=== PATIENT | female | born 1975 | race Caucasian/White ===

== ENCOUNTER 2023-04-10 12:08 | Observation (INO) | payer BC ==
--- NOTE | 2023-04-10 13:06 | ED ---
General Adult HPI - General Source: patient, RN notes reviewed Mode of arrival: ambulatory Limitations: no limitations <Dom Mckenna - Last Filed: 04/10/23 13:05> <Felicia Dumas - Last Filed: 04/11/23 00:13> - General Stated complaint: abn EKG - sent by pcp Time Seen by Provider: 04/10/23 13:05 - History of Present Illness Initial comments: 48-year-old female presents emergency Department from PCPs office for evaluation of numbness and tingling in left shoulder, arm. She states she doesn't feel well. She had abnormal sensation in her chest. Patient was sent over here after EKG. Patient states his symptoms duplicated improving no prior cardiac disease. (Dom Mckenna) Patient is a 48 old female presenting with chief complaint of chest pressure. Patient states that she was seen at her PCPs office earlier today for episodes of chest pressure which radiates down the left arm area accompanied by some numbness and tingling in the arm and shoulder. States that she doesn't feel well. Episodes come on at random, and no alleviating or aggravating factors. She was sent in by her PCP for abnormal EKG. Admits to some nausea, no vomiting or abdominal pain. No shortness of breath. She does admit to an occasional fluttering in the chest. No dizziness. No headache or vision or hearing changes. No active pain at this time (Felicia Dumas) - Related Data Home Medications Medication Instructions Recorded Confirmed No Known Home Medications 04/10/23 04/10/23 Allergies Allergy/AdvReac Type Severity Reaction Status Date / Time No Known Allergies Allergy Verified 04/10/23 18:35 Review of Systems ROS Other: All systems not noted in ROS Statement are negative. <Dom Mckenna - Last Filed: 04/10/23 13:05> ROS Other: All systems not noted in ROS Statement are negative. <Felicia Dumas - Last Filed: 04/11/23 00:13> ROS Statement: Those systems with pertinent positive or pertinent negative responses have been documented in the HPI. General Exam <Dom Mckenna - Last Filed: 04/10/23 13:05> Limitations: no limitations General appearance: alert, in no apparent distress Head exam: Present: atraumatic, normocephalic, normal inspection Eye exam: Present: normal appearance, EOMI. Absent: scleral icterus, periorbital swelling Neck exam: Present: normal inspection, full ROM Respiratory exam: Present: normal lung sounds bilaterally. Absent: respiratory distress, wheezes, rales, rhonchi, stridor Cardiovascular Exam: Present: regular rate, normal rhythm, normal heart sounds. Absent: systolic murmur, diastolic murmur, rubs, gallop, clicks Neurological exam: Present: alert, oriented X3, CN II-XII intact Psychiatric exam: Present: normal affect, normal mood Skin exam: Present: warm, dry, intact, normal color. Absent: rash <Felicia Dumas - Last Filed: 04/11/23 00:13> - General Exam Comments Initial Comments: Visual Physical Exam Vital signs reviewed General: Well-appearing, nontoxic, no acute distress. Head: Normocephalic, atraumatic Eyes: PERRLA, EOMI ENT: Airway patent Chest: Nonlabored breathing Skin: No visual rash, normal skin tone Neuro: Alert and oriented 3 Musculoskeletal: No gross abnormalities (Dom Mckenna) Course Vital Signs 04/10/23 04/10/23 04/10/23 13:03 16:59 18:33 Temperature 98.1 F Pulse Rate 73 87 71 Pulse Rate [ Bilateral Radial] Respiratory 20 18 20 Rate Blood Pressure 133/82 126/86 130/82 O2 Sat by Pulse 98 98 97 Oximetry 04/10/23 04/10/23 19:42 21:01 Temperature 98.2 F Pulse Rate 72 Pulse Rate [ 72 Bilateral Radial] Respiratory 16 Rate Blood Pressure 129/81 O2 Sat by Pulse 99 Oximetry EKG Findings - EKG Comments: EKG Findings:: Sinus rhythm with sinus arrhythmia. Ventricular rate 82. RI interval 151. QRS 96. QT 375. QTC 413. Normal axis. No ischemic changes. <Felicia Dumas - Last Filed: 04/11/23 00:13> Medical Decision Making - Lab Data Result diagrams: 04/10/23 13:31 04/10/23 13:31 <Felicia Dumas - Last Filed: 04/11/23 00:13> - Medical Decision Making Was pt. sent in by a medical professional or institution (, PA, PATENT PROSECUTION PARALEGAL, urgent care, hospital, or alf...) When possible be specific @ -Sent by PCP Did you speak to anyone other than the patient for history (EMS, parent, family, police, friend...)? What history was obtained from this source @ -No Did you review nursing and triage notes (agree or disagree)? Why? @ -I reviewed and agree with nursing and triage notes Were old charts reviewed (outside hosp., previous admission, EMS record, old EKG, old radiological studies, urgent care reports/EKG's, alf records)? Report findings @ -No old charts were reviewed Differential Diagnosis (chest pain, altered mental status, abdominal pain women, abdominal pain men, vaginal bleeding, weakness, fever, dyspnea, syncope, headache, dizziness, GI bleed, back pain, seizure, CVA, palpatations, mental health, musculoskeletal)? @ -MDM Differential Chest Pain: Stable Angina, Unstable Angina, STEMI, NSTEMI Aortic Dissection, Pneumothorax, Musculoskeletal, Esophageal Spasm GERD, Cholecystitis, Pancreatitis, Zoster This is not meant to be an all-inclusive list. EKG interpreted by me (3pts min.). @ -As above X-rays interpreted by me (1pt min.). @ -Chest x-ray shows no acute process CT interpreted by me (1pt min.). @ -None done U/S interpreted by me (1pt. min.). @ -None done What testing was considered but not performed or refused? (CT, X-rays, U/S, labs)? Why? @ -None What meds were considered but not given or refused? Why? @ -None Did you discuss the management of the patient with other professionals (professionals i.e. , PA, PATENT PROSECUTION PARALEGAL, lab, RT, psych nurse, rn social services, talent acquisition consultant, teacher, mail officer, porter sample case)? Give summary @ -Spoke with Dr. Taylor who accepted admission Was smoking cessation discussed for >3mins.? @ -No Was critical care preformed (if so, how long)? @ -No Were there social determinants of health that impacted care today? How? (Homelessness, low income, unemployed, alcoholism, drug addiction, transportation, low edu. Level, literacy, decrease access to med. care, nursing home, rehab)? @ -No Was there de-escalation of care discussed even if they declined (Discuss DNR or withdrawal of care, Hospice)? DNR status @ -No What co-morbidities impacted this encounter? (DM, HTN, Smoking, COPD, CAD, Cancer, CVA, ARF, Chemo, Hep., AIDS, mental health diagnosis, sleep apnea, morbid obesity)? @ -None Was patient admitted / discharged? Hospital course, mention meds given and route, prescriptions, significant lab abnormalities, going to OR and other pertinent info. @ -Patient is a 48-year-old female presenting with chief complaint of chest pain and palpitations. Physical examination is unremarkable. Workup is grossly negative. Given the patient's description of symptoms I believe in observation and evaluation by cardiology would be of benefit. I spoke with Dr. Taylor accepts admission. Patient is agreeable with this plan. I discussed this case with my attending Dr. Clark Undiagnosed new problem with uncertain prognosis? @ -No Drug Therapy requiring intensive monitoring for toxicity (Heparin, Nitro, Insulin, Cardizem)? @ -No Were any procedures done? @ -No Diagnosis/symptom? @ -Chest pain Acute, or Chronic, or Acute on Chronic? @ -Acute Uncomplicated (without systemic symptoms) or Complicated (systemic symptoms)? @ -Complicated Side effects of treatment? @ -No Exacerbation, Progression, or Severe Exacerbation? @ -No Poses a threat to life or bodily function? How? (Chest pain, USA, VT, pneumonia, PE, COPD, DKA, ARF, appy, cholecystitis, CVA, Diverticulitis, Homicidal, Suicidal, threat to staff... and all critical care pts) @ -Yes (Felicia Dumas) - Lab Data Lab Results 04/10/23 04/10/23 04/10/23 Range/Units 13:31 13:31 13:31 WBC 8.4 (3.8-10.6) k/uL RBC 4.86 (3.80-5.40) m/uL Hgb 14.1 (11.4-16.0) gm/dL Hct 42.6 (34.0-46.0) % MCV 87.7 (80.0-100.0) fL MCH 29.0 (25.0-35.0) pg MCHC 33.1 (31.0-37.0) g/dL RDW 12.5 (11.5-15.5) % Plt Count 433 (150-450) k/uL MPV 7.2 Neutrophils % 75 % Lymphocytes % 18 % Monocytes % 4 % Eosinophils % 2 % Basophils % 0 % Neutrophils # 6.3 (1.3-7.7) k/uL Lymphocytes # 1.5 (1.0-4.8) k/uL Monocytes # 0.3 (0-1.0) k/uL Eosinophils # 0.1 (0-0.7) k/uL Basophils # 0.0 (0-0.2) k/uL PT 9.9 (9.0-12.0) sec INR 0.9 (<1.2) APTT 24.2 (22.0-30.0) sec Sodium 139 (137-145) mmol/L Potassium 4.2 (3.5-5.1) mmol/L Chloride 104 (98-107) mmol/L Carbon Dioxide 23 (22-30) mmol/L Anion Gap 12 mmol/L BUN 17 (7-17) mg/dL Creatinine 0.70 (0.52-1.04) mg/dL Est GFR (CKD-EPI)AfAm >90 (>60 ml/min/1.73 sqM) Est GFR (CKD-EPI)NonAf >90 (>60 ml/min/1.73 sqM) Glucose 94 (74-99) mg/dL Calcium 9.4 (8.4-10.2) mg/dL Magnesium 2.3 (1.6-2.3) mg/dL Total Bilirubin 0.5 (0.2-1.3) mg/dL AST 27 (14-36) U/L ALT 18 (4-34) U/L Alkaline Phosphatase 80 (38-126) U/L Troponin I (0.000-0.034) ng/mL Total Protein 8.0 (6.3-8.2) g/dL Albumin 4.5 (3.5-5.0) g/dL 04/10/23 Range/Units 13:31 WBC (3.8-10.6) k/uL RBC (3.80-5.40) m/uL Hgb (11.4-16.0) gm/dL Hct (34.0-46.0) % MCV (80.0-100.0) fL MCH (25.0-35.0) pg MCHC (31.0-37.0) g/dL RDW (11.5-15.5) % Plt Count (150-450) k/uL MPV Neutrophils % % Lymphocytes % % Monocytes % % Eosinophils % % Basophils % % Neutrophils # (1.3-7.7) k/uL Lymphocytes # (1.0-4.8) k/uL Monocytes # (0-1.0) k/uL Eosinophils # (0-0.7) k/uL Basophils # (0-0.2) k/uL PT (9.0-12.0) sec INR (<1.2) APTT (22.0-30.0) sec Sodium (137-145) mmol/L Potassium (3.5-5.1) mmol/L Chloride (98-107) mmol/L Carbon Dioxide (22-30) mmol/L Anion Gap mmol/L BUN (7-17) mg/dL Creatinine (0.52-1.04) mg/dL Est GFR (CKD-EPI)AfAm (>60 ml/min/1.73 sqM) Est GFR (CKD-EPI)NonAf (>60 ml/min/1.73 sqM) Glucose (74-99) mg/dL Calcium (8.4-10.2) mg/dL Magnesium (1.6-2.3) mg/dL Total Bilirubin (0.2-1.3) mg/dL AST (14-36) U/L ALT (4-34) U/L Alkaline Phosphatase (38-126) U/L Troponin I <0.012 (0.000-0.034) ng/mL Total Protein (6.3-8.2) g/dL Albumin (3.5-5.0) g/dL Disposition <Dom Mckenna - Last Filed: 04/10/23 13:05> Time of Disposition: 18:15 <Felicia Dumas - Last Filed: 04/11/23 00:13> Clinical Impression: Chest pain Disposition: ADMITTED IP TO THIS HOSP Condition: Fair
[2023-04-10 13:45] LABS: Basophils % (A) 0 %; Eosinophils # (A) 0.1 k/uL (0-0.7); Eosinophils % (A) 2 %; HCT 42.6 % (34.0-46.0); HGB 14.1 gm/dL (11.4-16.0); Lymphocytes # (A) 1.5 k/uL (1.0-4.8); Lymphocytes % (A) 18 %; MCHC 33.1 g/dL (31.0-37.0); MCV 87.7 fL (80.0-100.0); Mean Platelet Volume 7.2; Monocytes # (A) 0.3 k/uL (0-1.0); Monocytes % (A) 4 %; Neutrophils # (A) 6.3 k/uL (1.3-7.7); Neutrophils % (A) 75 %; Platelet Count 433 k/uL (150-450); RBC 4.86 m/uL (3.80-5.40); RDW 12.5 % (11.5-15.5); WBC 8.4 k/uL (3.8-10.6)
[2023-04-10 14:07] LABS: ALT 18 U/L (4-34); AST 27 U/L (14-36); African American GFR (CKD) >90 (>60 ml/min/1.73 sqM); Albumin 4.5 g/dL (3.5-5.0); Alkaline Phosphatase 80 U/L (38-126); Anion Gap 12 mmol/L; Blood Urea Nitrogen 17 mg/dL (7-17); Calcium 9.4 mg/dL (8.4-10.2); Carbon Dioxide 23 mmol/L (22-30); Chloride 104 mmol/L (98-107); Glucose 94 mg/dL (74-99); INR 0.9 (<1.2); Magnesium 2.3 mg/dL (1.6-2.3); Non-African American GFR(CKD) >90 (>60 ml/min/1.73 sqM); Partial Thromboplastin Time 24.2 sec (22.0-30.0); Potassium 4.2 mmol/L (3.5-5.1); Prothrombin Time 9.9 sec (9.0-12.0); Sodium 139 mmol/L (137-145); Total Bilirubin 0.5 mg/dL (0.2-1.3)
--- NOTE | 2023-04-10 15:05 | XR ---
EXAMINATION TYPE: XR chest 2V DATE OF EXAM: 04/10/2023 2:56 PM COMPARISON: None TECHNIQUE: XR chest 2V Frontal and lateral views of the chest. CLINICAL INDICATION:Female, 48 years old with history of Chest Pain; FINDINGS: Lungs/Pleura: There is no evidence of pleural effusion, focal consolidation, or pneumothorax. Pulmonary vascularity: Unremarkable. Heart/mediastinum: Cardiomediastinal silhouette is unremarkable. Musculoskeletal: No acute osseous pathology. IMPRESSION: No acute cardiopulmonary disease/process.
[2023-04-10] MEDS ORDERED: KETOROLAC 15 MG/ML 1 ML VIAL IVP PRN (18:15)
[2023-04-10] MEDS ORDERED: NALOXONE 0.4 MG/ML 1 ML VIAL IV PRN (18:15)
[2023-04-10] MEDS ORDERED: MORPHINE SULFATE 4 MG/ML SYRINGE IV PRN (18:15)
[2023-04-10] MEDS ORDERED: ACETAMINOPHEN TAB 325 MG TAB PO PRN (18:15)
--- NOTE | 2023-04-10 21:41 | P.HPIM ---
History of Present Illness H&P Date: 04/10/23 Chief Complaint: Heart racing This is a pleasant 48-year-old patient with no past medical history. For 2 months patient been having episodes where she feels heart fluttering associated with dizziness. 8:30 AM this morning patient again noticed significant fluttering of the heart and lasted rather intensely for about 50 minutes. Became dizzy. She developed pain in the shoulder and the left arm became numb. Also slightly confused. No prior diagnosis of arrhythmia. Does not take any nicotine or caffeine products. Of late he has been feeling a bit dizzy tired. Has been about 20 pounds in the last few months. Accompanied by in the ER. The strep from her outside hospital could not be located in the ER. Currently showing sinus rhythm on a telemetry monitoring. Review of systems: GEN.: Tired EYES: None HEENT: None NECK: None RESPIRATORY: None CARDIOVASCULAR: As above GASTROINTESTINAL: None GENITOURINARY: None MUSCULOSKELETAL: None LYMPHATICS: None HEMATOLOGICAL: None PSYCHIATRY: None NEUROLOGICAL: None Social history: . No smoking or alcohol. Works with her at her store Physical examination: VITAL SIGNS: At 8.2, 72, 16, 129/81, 99% room air GENERAL: BMI 30.7, declining a bit of a comfortable. EYES: Pupils equal. Conjunctiva normal. HEENT: External appearance of nose and ears normal, oral cavity grossly normal. NECK: JVD not raised; masses not palpable. HEART: First and second heart sounds are normal; no edema. LUNGS: Respiratory rate normal; clear to auscultation. ABDOMEN: Soft, nontender, liver spleen not palpable, no masses palpable. PSYCH: Alert and oriented x3; mood and affect normal. MUSCULOSKELETAL:No Clubbing/cyanosis;muscles-grossly intact NEUROLOGICAL: Cranial nerves grossly intact; no facial asymmetry, power and sensation grossly intact. LYMPHATICS: No lymph nodes palpable in the axilla and neck INVESTIGATIONS, reviewed in the clinical context: White count 8.4 hemoglobin 14.1 platelets 433 potassium 4.2 creatinine 0.7 Telemetry strip in the monitor currently reviewed by me personally: Sinus rhythm Chest x-ray film personally reviewed by me-unremarkable Assessment and plan: -Probable paroxysmal arrhythmia, symptomatic. Patient been having episodes for 2 months. Far more intense symptoms today. He cutting chest pain. Need to rule out underlying ischemia. Telemetry. -Rule out hypothyroid. Patient is put on weight. Has a feeling tired. Check TSH -Obesity BMI 30.7 Weight loss measures Telemetry. Consult ALLERGY. Care discussed with the patient has been out of t he bedside. Past Medical History Past Medical History: No Reported History History of Any Multi-Drug Resistant Organisms: None Reported Past Surgical History: No Surgical Hx Reported Past Psychological History: Anxiety Smoking Status: Never smoker Past Alcohol Use History: None Reported Past Drug Use History: None Reported Medications and Allergies Home Medications Medication Instructions Recorded Confirmed Type No Known Home Medications 04/10/23 04/10/23 History Allergies Allergy/AdvReac Type Severity Reaction Status Date / Time No Known Allergies Allergy Verified 04/10/23 18:35 Physical Exam Vitals: Vital Signs Temp Pulse Pulse Resp BP Pulse Ox 04/10/23 21:01 98.2 F 72 16 129/81 99 04/10/23 19:42 72 04/10/23 18:33 71 20 130/82 97 04/10/23 16:59 87 18 126/86 98 04/10/23 13:03 98.1 F 73 20 133/82 98 Intake and Output 04/10/23 04/10/23 04/10/23 06:59 14:59 22:59 Other: Weight 86.183 kg Results CBC & Chem 7: 04/10/23 13:31 04/10/23 13:31
[2023-04-10] MEDS: ENOXAPARIN 40 MG/0.4 ML SYRINGE SQ SCH (23:43)
[2023-04-11] MEDS: ENOXAPARIN 40 MG/0.4 ML SYRINGE SQ SCH (08:22)
[2023-04-11 08:23] VITALS: RESP 18
--- NOTE | 2023-04-11 09:12 | P.CRDCN ---
History of Present Illness Consult date: 04/11/23 Consult reason: chest pain History of present illness: History of present illness: This is a 48-year-old female patient with no previous cardiac history. We have been asked to evaluate patient for chest pain. Patient gives history that she morning has had some dizzy spells with a fluttering or butterfly feeling in her chest. Yesterday in the morning she started having burning pain in the left shoulder. She was sent from her family practice to the emergency center for further evaluation. Patient denies any cold symptoms, no cough or shortness of breath. She is a lifelong nonsmoker. She does have a family history father had diagnosis of heart failure in his early 60s. 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 EKGsinus rhythm with no acute ST changes, second EKG reveals T-wave inversion Chest x-ray:no acute findings CBC, INR, CMP all within normal limits. Troponin negative 3. TSH 1.32 Home cardiac medications: Review Of Systems: At the time of my evaluation: Constitutional: No fever, no chills. No weakness, fatigue or lethargy. EENT: No headache. No dizziness. Lungs: No shortness of breath, cough, no sputum production. No wheezing. Cardiovascular: No chest pain, no lower extremity edema. No palpitations. No paroxysmal nocturnal dyspnea. No orthopnea. No lightheadedness or dizziness. No syncopal episodes. Abdominal: No abdominal pain. No nausea, vomiting. No diarrhea. No constip ation. No bloody or tarry stools. Genitourinary: No dysuria.. No urinary retention. Musculoskeletal: No myalgias. No muscle weakness, no frequent falls. No back pain. No neck pain. Integumentary: No wounds. No rash. No unusual bruising. Neurologic: No aphasia. No facial droop. No change in mentation. No head injury. No headache. Physical examination: Gen: This is a [id number] female. She is resting in her bed and appears to be comfortable and in no acute distress. VS: reviewed HEENT: Head is atraumatic, normocephalic. Pupils equal, round. Sclerae is anicteric. NECK: Supple. No JVD. . LUNGS: Clear to auscultation. No wheezes or rhonchi. No intercostal retraction s. HEART: Regular rate and rhythm. No murmur. ABDOMEN: Soft No tenderness. EXTREMITIES: No pedal edema. No calf tenderness. NEUROLOGICAL: Patient is awake, alert and oriented x3. Assessment: Chest pain, acute coronary syndrome ruled out T wave inversions on repeat EKG Plan: Obtain stress echo today Obtain 2-D echocardiogram and Doppler study to assess cardiac structure and function Event monitor 14 days Further recommendations to follow based upon clinical course. If stress testing and an echocardiogram unremarkable, patient is cleared from cardiology for discharge home and may follow up in the office in 2-3 weeks. Thank you kindly for this consultation. Nurse practitioner note has been reviewed, I agree with documented findings and plan of care. Patient was seen and examined. Past Medical History Past Medical History: No Reported History History of Any Multi-Drug Resistant Organisms: None Reported Past Surgical History: No Surgical Hx Reported Past Psychological History: Anxiety Smoking Status: Never smoker Past Alcohol Use History: None Reported Past Drug Use History: None Reported Medications and Allergies Home Medications Medication Instructions Recorded Confirmed Type No Known Home Medications 04/10/23 04/10/23 History Allergies Allergy/AdvReac Type Severity Reaction Status Date / Time No Known Allergies Allergy Verified 04/10/23 18:35 Physical Exam Vitals: Vital Signs Temp Pulse Pulse Pulse Resp BP BP 04/11/23 02:05 98.3 F 63 16 124/76 04/10/23 21:01 98.2 F 72 16 129/81 04/10/23 20:21 98.3 F 61 17 129/83 04/10/23 19:42 72 04/10/23 18:33 71 20 130/82 04/10/23 16:59 87 18 126/86 04/10/23 13:03 98.1 F 73 20 133/82 Pulse Ox 04/11/23 02:05 96 04/10/23 21:01 99 04/10/23 20:21 97 04/10/23 19:42 04/10/23 18:33 97 04/10/23 16:59 98 04/10/23 13:03 98 Intake and Output 04/10/23 04/11/23 04/11/23 22:59 06:59 14:59 Other: # Voids 1 1 Weight 86.183 kg Results 04/10/23 13:31 04/10/23 13:31 Cardiac Enzymes 04/10/23 04/10/23 04/10/23 Range/Units 13:31 13:31 20:42 AST 27 (14-36) U/L Troponin I <0.012 <0.012 (0.000-0.034) ng/mL 04/10/23 Range/Units 23:40 AST (14-36) U/L Troponin I <0.012 (0.000-0.034) ng/mL Coagulation 04/10/23 Range/Units 13:31 PT 9.9 (9.0-12.0) sec APTT 24.2 (22.0-30.0) sec CBC 04/10/23 Range/Units 13:31 WBC 8.4 (3.8-10.6) k/uL RBC 4.86 (3.80-5.40) m/uL Hgb 14.1 (11.4-16.0) gm/dL Hct 42.6 (34.0-46.0) % Plt Count 433 (150-450) k/uL Comprehensive Metabolic Panel 04/10/23 Range/Units 13:31 Sodium 139 (137-145) mmol/L Potassium 4.2 (3.5-5.1) mmol/L Chloride 104 (98-107) mmol/L Carbon Dioxide 23 (22-30) mmol/L BUN 17 (7-17) mg/dL Creatinine 0.70 (0.52-1.04) mg/dL Glucose 94 (74-99) mg/dL Calcium 9.4 (8.4-10.2) mg/dL AST 27 (14-36) U/L ALT 18 (4-34) U/L Alkaline Phosphatase 80 (38-126) U/L Total Protein 8.0 (6.3-8.2) g/dL Albumin 4.5 (3.5-5.0) g/dL Current Medications Generic Name Dose Route Start Last Admin Trade Name Freq PRN Reason Stop Dose Admin Acetaminophen 650 mg 04/10/23 18:15 Acetaminophen Tab 325 Mg Tab PO Q6HR PRN Mild Pain or Fever > 100.5 Enoxaparin Sodium 40 mg 04/10/23 22:00 04/10/23 23:43 Enoxaparin 40 Mg/0.4 Ml Syringe SQ 40 mg DAILY DAMIAN Administration Ketorolac Tromethamine 15 mg 04/10/23 18:15 Ketorolac 15 Mg/Ml 1 Ml Vial IVP 04/13/23 18:16 Q6HR PRN Moderate Pain (Scale 4 to 6) Morphine Sulfate 4 mg 04/10/23 18:15 Morphine Sulfate 4 Mg/Ml Syringe IV Q4HR PRN Severe Pain (Scale 7 to 10) Naloxone HCl 0.2 mg 04/10/23 18:15 Naloxone 0.4 Mg/Ml 1 Ml Vial IV Q2M PRN Opioid Reversal Intake and Output 04/10/23 04/11/23 04/11/23 22:59 06:59 14:59 Other: # Voids 1 1 Weight 86.183 kg 04/10/23 13:31 04/10/23 13:31
--- NOTE | 2023-04-11 10:40 | CA ---
Stress Echo Report [place] Jimenez Age: 48 Gender: F : 1975 Exam Date: 04/11/2023 09:11 Exam Location: [facility] Ht (in): 66 Wt (lb): 191 Ordering Physician: Ina Rivers Referring Physician: [id number] Field Project Manager: Dee Dee Boykni RDCS Technologist Procedure CPT: Indication: CP ICD-9 Codes: Rhythm: Patient History: CHEST PAIN, DIFFICULTY IN BREATHING, PALPITATIONS, NUMBNESS IN FACE/NECK, FAMILY HX OF HEART DISEASE Cardiac Medications: Medications in past 24 hours: Contrast: Stress Results Protocol: Kody Total dose(mL): Exercise Duration (min:sec): 7:[address] Depression (mm): Angina Score: Austin Score: METS: 8.5 Resting HR: 99 Resting BP: 121 / 77 Peak HR: 158 Peak BP: 194 / 92 Max Predicted HR: 171 92 % Max Predicted HR Target HR: 145 Double Product: [id number] Stress Summary: BP Response: Reason for Termination: MAX EXERTION/TARGET HR Cardiac Symptoms: FATIGUE ECG Analysis Resting ECG: Stress ECG: Arrhythmia: Echo Analysis Resting Echo: Peak Echo Analysis: MEASUREMENTS (Male/Female) Normal Values CONCLUSIONS Baseline EKG revealed normal sinus rhythm with minor precordial nonspecific ST-T changes. Patient walked on a standard Kody protocol for 7 minutes and achieved a maximum heart rate of 158 bpm which is available 85% of predicted maximal. She did not have any angina. There was no arrhythmia. She delivered fatigue and shortness of breath. EKG did not reveal any ST segment changes to indicate ischemia. By EKG criteria this is a negative stress test with fair exercise capacity Baseline echo images revealed normal wall motion and wall thickening of all segments. At peak exercise there was good augmentation of left ventricular wall motion wall thickening of all segments suggesting that there is no evidence of any stress- induced ischemia on this study. Final impression #1 fair exercise capacity with a normal stress test by EKG criteria #2 normal stress echocardiogram without evidence of ischemia Dr. Silvia Serrano MD (Electronically Signed) Final Date: 11 Apr 2023 10:39
--- NOTE | 2023-04-11 12:42 | CA ---
Transthoracic Echo Report Name: [place] Jimenez Age: 48 Gender: F : 1975 Exam Date: 04/11/2023 09:33 Exam Location: [facility] Ht (in): 65 Wt (lb): 180 Ordering Physician: Ina Rivers Attending/Referring Phys: [id number], Tita Solderer Dipper Dee Dee Boykin RDCS Procedure CPT: Indications: LVF Cardiac Hx: Technical Quality: Good Contrast 1: Total Dose (mL): Contrast 2: Total Dose (mL): MEASUREMENTS (Male / Female) Normal Values 2D ECHO LV Diastolic Diameter PLAX 4.2 cm 4.2 - 5.9 / 3.9 - 5.3 cm LV Systolic Diameter PLAX 2.8 cm IVS Diastolic Thickness 1.0 cm 0.6 - 1.0 / 0.6 - 0.9 cm LVPW Diastolic Thickness 1.1 cm 0.6 - 1.0 / 0.6 - 0.9 cm LV Relative Wall Thickness 0.5 RV Internal Dim ED PLAX 3.2 cm LA Systolic Diameter LX 3.3 cm 3.0 - 4.0 / 2.7 - 3.8 cm LA Volume 32.8 cm??? 18 - 58 / 22 - 52 cm??? M-MODE Aortic Root Diameter MM 2.9 cm MV E Point Septal Separation 0.2 cm AV Cusp Separation MM 1.7 cm DOPPLER AV Peak Velocity 112.9 cm/s AV Peak Gradient 5.1 mmHg MV Area PHT 3.2 cm??? Mitral E Point Velocity 58.8 cm/s Mitral A Point Velocity 54.1 cm/s Mitral E to A Ratio 1.1 MV Deceleration Time 235.7 ms MV E' Velocity 8.7 cm/s Mitral E to MV E' Ratio 6.8 TR Peak Velocity 238.8 cm/s TR Peak Gradient 22.8 mmHg Right Ventricular Systolic Press 27.8 mmHg FINDINGS Left Ventricle Left ventricular ejection fraction is estimated at 55-60 %. Left ventricular cavity size normal. Left ventricular wall thickness normal. Normal left ventricular wall motion. Right Ventricle Normal right ventricular size and function. Right ventricular systolic pressure within normal limits. Right Atrium Normal right atrial size. Left Atrium Normal left atrial size. Mitral Valve Structurally normal mitral valve. No mitral stenosis, regurgitation or prolapse. Aortic Valve Trileaflet aortic valve. No aortic valve stenosis or regurgitation. Tricuspid Valve Structurally normal tricuspid valve. Mild tricuspid regurgitation. Pulmonic Valve Structurally normal pulmonic valve. Trace pulmonic regurgitation. Pericardium Normal pericardium. No pericardial effusion. Aorta Normal size aortic root and proximal ascending aorta. CONCLUSIONS Normal LV size and systolic function. No significant abnormality on the Doppler exam. No pericardial effusion Previewed by: Dr. Silvia Serrano MD (Electronically Signed) Final Date: 11 Apr 2023 12:41
[2023-04-11 13:50] VITALS: BP 113/67; PULSE 87; TEMP 97.9
--- NOTE | 2023-04-11 20:20 | P.DS ---
Providers Date of admission: 04/10/23 18:17 Expected date of discharge: 04/11/23 Attending physician: Lewis Taylor Consults: 04/10/23 18:15 Consult Physician Urgent Consulting Provider: [facility] Consult Reason/Comments: Chest pain Do you want consulting provider notified?: Yes Primary care physician: Shai [facility] Course: Chief Complaint: Heart racing This is a pleasant 48-year-old patient with no past medical history. For 2 months patient been having episodes where she feels heart fluttering associated with dizziness. 8:30 AM this morning patient again noticed significant fluttering of the heart and lasted rather intensely for about 50 minutes. Became dizzy. She developed pain in the shoulder and the left arm became numb. Also slightly confused. No prior diagnosis of arrhythmia. Does not take any nicotine or caffeine products. Of late he has been feeling a bit dizzy tired. Has been about 20 pounds in the last few months. Accompanied by in the ER. EKG strip from her outside hospital could not be located in the ER. Currently showing sinus rhythm on a telemetry monitoring. April 11: Remains well. No further episodes. Seen by cardiology. Cleared for discharge. Outpatient event monitor. Follow-up with cardiology. Negative stress echocardiogram. social history: . No smoking or alcohol. Works with her at her store Physical examination: VITAL SIGNS: 97.9, 87, 18, 1 with 3/67, 98% room air GENERAL: BMI 30.7, comfortable EYES: Pupils equal. Conjunctiva normal. HEENT: External appearance of nose and ears normal, oral cavity grossly normal. NECK: JVD not raised; masses not palpable. HEART: First and second heart sounds are normal; no edema. LUNGS: Respiratory rate normal; clear to auscultation. ABDOMEN: Soft, nontender, liver spleen not palpable, no masses palpable. PSYCH: Alert and oriented x3; mood and affect normal. INVESTIGATIONS, reviewed in the clinical context: 2-D echocardiogram EF 55-60%. Stress echocardiogram: Negative for ischemia Troponin I 3: Less than 0.012 TSH: 1.3-0 White count 8.4 hemoglobin 14.1 platelets 433 potassium 4.2 creatinine 0.7 Telemetry strip in the monitor currently reviewed by me personally: Sinus rhythm Chest x-ray film personally reviewed by me-unremarkable Assessment and plan: -Probable paroxysmal arrhythmia, symptomatic. Patient been having episodes for 2 months. Far more intense symptoms today. Some chest pain. Chest echocardiogram negative. Being discharged with him and monitor. -Hypothyroid ruled out -Obesity BMI 30.7 Weight loss measures Disposition: Home Plan - Discharge Summary New Discharge Prescriptions: No Action No Known Home Medications Discharge Medication List No Known Home Medications 04/10/23 [History] Follow up Appointment(s)/Referral(s): Silvia Serrano MD [STAFF PHYSICIAN] - 2 Weeks (Office will call patient with date and time of appointment) Shai Barroso DO [Primary Care Provider] - 1-2 days Patient Instructions/Handouts: Chest Pain (DC), Dizziness (ED) Activity/Diet/Wound Care/Special Instructions: FOLLOW UP WITH PRIMARY CARE DIRECTED OR RETURN TO ER FOR WORSENING SYMPTOMS, PROBLEMS, OR CONCERNS. Discharge Disposition: HOME SELF-CARE
== END 2023-04-11 15:30 | disposition home or self-care (01) ==
LOC: EC 12:08 → 6NMEDSUR 18:17
PROVIDERS: ADMIT Hospitalist; ATTEND Hospitalist
DX: R20.0 Anesthesia of skin (principal); R20.2 Paresthesia of skin; I49.8 Other specified cardiac arrhythmias; R07.9 Chest pain, unspecified; E03.9 Hypothyroidism, unspecified; E66.9 Obesity, unspecified; Z68.30 Body mass index [BMI] 30.0-30.9, adult
CPT/HCPCS: 96376; 96374; 99285; 36415; 93005; 93306; 93270; 93351; 80053; 84443; 83735; 84484; 85025; 85610; 85730; 71046; G0378 ×2; J1650 ×2